=== PATIENT | male | born 1990 | race Caucasian/White ===

== ENCOUNTER 2021-02-19 14:50 | Emergency (ER) | payer BC ==
[2021-02-20 10:52] LABS: SARS-CoV-2 PCR by NAA Not Detected (NotDetected)
== END 2021-02-19 15:55 | disposition home or self-care (01) ==
LOC: BURERS 14:50
DX: J03.90 Acute tonsillitis, unspecified (principal); J30.9 Allergic rhinitis, unspecified; J06.9 Acute upper respiratory infection, unspecified; Z20.822 Contact with and (suspected) exposure to COVID-19
CPT/HCPCS: 87081; 87430; 99283; U0003; U0005

== ENCOUNTER 2022-01-06 08:47 | Emergency (ER) | payer BC ==
[2022-01-06] MEDS ORDERED: Dexamethasone 4 MG TAB ONE (10:22)
== END 2022-01-06 11:05 | disposition home or self-care (01) ==
LOC: BURERS 08:47
DX: J02.8 Acute pharyngitis due to other specified organisms (principal)
CPT/HCPCS: 87081; 87430; 87804; 99283; J8540

== ENCOUNTER 2024-12-27 10:49 | Emergency (ER) | payer BC, OTHER | END 2024-12-27 13:00 | disposition home or self-care (01) | LOC: BURERS 10:49 | DX: I87.8 Other specified disorders of veins (principal); Z55.6 Problems related to health literacy | CPT/HCPCS: 99283 ==

== ENCOUNTER 2025-01-13 04:59 | Emergency (ER) | payer OTHER | END 2025-01-13 05:56 | disposition home or self-care (01) | LOC: BURERS 04:59 | DX: S46.811A Strain of other muscles, fascia and tendons at shoulder and upper arm level, right arm, initial encounter (principal); W01.0XXA Fall on same level from slipping, tripping and stumbling without subsequent striking against object, initial encounter | CPT/HCPCS: 99283 ==